=== PATIENT | female | born 1955 | race Asian ===

== ENCOUNTER → 2022-12-13 | Day surgery (SDC) | payer MEDICARE ==
[2022-12-10 10:40] VITALS: BMI 27.3
== END ==
LOC: CSHSDC 06:15
PROVIDERS: ATTEND Internal Medicine Gastroenterology
DX: D50.9 Iron deficiency anemia, unspecified (principal); K92.2 Gastrointestinal hemorrhage, unspecified; I10 Essential (primary) hypertension; E78.5 Hyperlipidemia, unspecified; E03.9 Hypothyroidism, unspecified; E11.9 Type 2 diabetes mellitus without complications; Z53.9 Procedure and treatment not carried out, unspecified reason; Z90.710 Acquired absence of both cervix and uterus; Z88.0 Allergy status to penicillin; Z79.899 Other long term (current) drug therapy

== ENCOUNTER 2023-11-02 09:45 | Outpatient (CLI) | payer MEDICARE | END 2023-11-02 09:46 | disposition home or self-care (01) | LOC: CSHMAMMO 09:45 | PROVIDERS: ATTEND Internal Medicine | DX: Z12.31 Encounter for screening mammogram for malignant neoplasm of breast (principal); E28.39 Other primary ovarian failure; N64.89 Other specified disorders of breast | CPT/HCPCS: 77063; 77067; 77080 ==

== ENCOUNTER → 2024-05-18 | Day surgery (SDC) | payer MEDICARE | LOC: CSHULT 12:31 | PROVIDERS: ATTEND Internal Medicine | PROC: 0HB5XZX Excision of Chest Skin, External Approach, Diagnostic (ICD-10-PCS; principal; 2024-05-18) | DX: R92.8 Other abnormal and inconclusive findings on diagnostic imaging of breast (principal); C50.812 Malignant neoplasm of overlapping sites of left female breast | CPT/HCPCS: 19083; 88305; 88341; 88342; 88361 ==

== ENCOUNTER 2024-06-19 08:11 | Day surgery (SDC) | payer MEDICARE ==
[2024-06-14 12:26] VITALS: BMI 28.1
[2024-06-19] MEDS ORDERED: Acetaminophen 500 MG TAB ONE (09:36)
[2024-06-19] MEDS ORDERED: Ketorolac Tromethamine 30 MG (1 mL) VIAL ONE (09:37)
[2024-06-19] MEDS ORDERED: Lidocaine 2% PF 5 ML VIAL ONE (11:32)
[2024-06-19] MEDS ORDERED: Isosulfan Blue 50 MG/5 ML VIAL ONE (11:32)
[2024-06-19] MEDS ORDERED: Bupivacaine/Epinephrine 0.25% 30 ML VIAL ONE (11:33)
[2024-06-19] MEDS ORDERED: PROPOFOL 20 ML ONE (12:14)
[2024-06-19] MEDS ORDERED: Dexamethasone 20 MG/5 ML VIAL ONE (12:14)
[2024-06-19] MEDS ORDERED: fentaNYL 50 mcg/mL 1 mL Vial ONE (12:14)
[2024-06-19] MEDS ORDERED: Lidocaine 1% PF 5 ML VIAL ONE (12:14)
[2024-06-19] MEDS ORDERED: Ondansetron PF 4 MG/2 ML Vial ONE (12:14)
[2024-06-19] MEDS ORDERED: Midazolam HCl 2 mg/2 ml Vial ONE (12:14)
[2024-06-19] MEDS ORDERED: Glycopyrrolate 0.2 MG/ML 5 ML SYRINGE ONE (12:15)
[2024-06-19] MEDS ORDERED: Dexmedetomidine 200 MCG/2 ML VIAL ONE (12:18)
[2024-06-19] MEDS ORDERED: CEFAZOLIN 1 GM VIAL ONE (12:42)
[2024-06-19] MEDS ORDERED: ePHEDrine Sulfate 50 MG/10 ML VIAL ONE (12:44)
== END 2024-06-19 16:00 | disposition home or self-care (01) ==
LOC: CSHSDC 08:11
PROVIDERS: ATTEND Specialist
DX: C50.912 Malignant neoplasm of unspecified site of left female breast (principal)
CPT/HCPCS: 19301; 38500; A6258; C1713; J0690; J1100; J1885; J2250; J2405; J2704; J3010; Q9968; 88307

== ENCOUNTER 2024-06-19 09:00 | Day surgery (SDC) | payer MEDICARE | END 2024-06-19 11:00 | disposition home or self-care (01) | LOC: CSHNM 09:00 | PROVIDERS: ATTEND Specialist | DX: C50.912 Malignant neoplasm of unspecified site of left female breast (principal) | CPT/HCPCS: 76098; 78195; A9541 ==

== ENCOUNTER 2024-07-02 09:58 | Day surgery (SDC) | payer MEDICARE ==
[2024-06-28 16:07] VITALS: BMI 27.9
[2024-07-02] MEDS ORDERED: Acetaminophen 500 MG TAB ONE (11:00)
[2024-07-02] MEDS ORDERED: Ketorolac Tromethamine 30 MG (1 mL) VIAL ONE (11:00)
[2024-07-02] MEDS ORDERED: Lidocaine 2% PF 5 ML VIAL ONE ×2 (11:23→11:43)
[2024-07-02] MEDS ORDERED: Bupivacaine/Epinephrine 0.25% 30 ML VIAL ONE (11:24)
[2024-07-02] MEDS ORDERED: Dexamethasone 4 mg/ml Vial ONE (11:43)
[2024-07-02] MEDS ORDERED: Ondansetron PF 4 MG/2 ML Vial ONE (11:43)
[2024-07-02] MEDS ORDERED: PROPOFOL 20 ML ONE (11:44)
[2024-07-02] MEDS ORDERED: fentaNYL 50 mcg/mL 1 mL Vial ONE ×3 (11:57→13:27)
[2024-07-02] MEDS ORDERED: CEFAZOLIN 2 GM VIAL ONE (12:02)
[2024-07-02] MEDS ORDERED: ePHEDrine Sulfate 50 MG/10 ML VIAL ONE (12:25)
[2024-07-02] MEDS ORDERED: PHENYLEPHRINE-NS 100 MCG/ML 10 ML SYRINGE ONE (12:56)
[2024-07-02] MEDS ORDERED: traMADol HCl 50 MG TAB ONE (13:56)
== END 2024-07-02 14:25 | disposition home or self-care (01) ==
LOC: CSHSDC 09:58
PROVIDERS: ATTEND Specialist
PROC: 0HBU0ZZ Excision of Left Breast, Open Approach (ICD-10-PCS; principal; 2024-07-02)
DX: C50.912 Malignant neoplasm of unspecified site of left female breast (principal); N64.2 Atrophy of breast; N60.12 Diffuse cystic mastopathy of left breast; N62 Hypertrophy of breast; I10 Essential (primary) hypertension; E11.9 Type 2 diabetes mellitus without complications; E78.00 Pure hypercholesterolemia, unspecified; E03.9 Hypothyroidism, unspecified; Z90.710 Acquired absence of both cervix and uterus; Z77.22 Contact with and (suspected) exposure to environmental tobacco smoke (acute) (chronic); Z88.0 Allergy status to penicillin; Z79.890 Hormone replacement therapy; Z79.84 Long term (current) use of oral hypoglycemic drugs; Z79.899 Other long term (current) drug therapy
CPT/HCPCS: 19301; C1713; J1100; J1885; J2405; J2704; J3010; 88307; 88341; 88342